=== PATIENT | female | born 1985 | race Caucasian/White ===

== ENCOUNTER 2018-04-12 19:35 | Emergency (ER) | payer OTHER ==
[2018-04-12 20:46] VITALS: BP 102/55; PULSE 72; RESP 18; TEMP 97.9
[2018-04-12] MEDS ORDERED: IBUPROFEN 400 MG TAB PO STA (20:48)
[2018-04-12] MEDS ORDERED: Acetaminophen-Codeine 300-30mg TAB PO STA (20:48)
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
--- NOTE | 2018-04-12 21:19 | XR ---
EXAMINATION TYPE: XR shoulder complete LT DATE OF EXAM: 04/12/2018 COMPARISON: EXAMINATION TYPE: XR shoulder complete LT DATE OF EXAM: 04/12/2018 COMPARISON: NONE HISTORY: Ulnar pain TECHNIQUE: 3 views FINDINGS: I see no fracture nor dislocation. Joint spaces are normal. There are no pathologic calcifi cations. IMPRESSION: Negative left shoulder exam.
[2018-04-12] MEDS ORDERED: ACET/COD 300 MG/30 MG STARTER PACK 6 TAB BTL PO STA (21:34)
== END 2018-04-12 21:51 | disposition home or self-care (01) ==
LOC: EC 19:35
DX: M25.512 Pain in left shoulder (principal); M25.312 Other instability, left shoulder; F17.200 Nicotine dependence, unspecified, uncomplicated; Z88.8 Allergy status to other drugs, medicaments and biological substances
CPT/HCPCS: 99283

== ENCOUNTER 2020-04-04 15:30 | Emergency (ER) | payer OTHER ==
[2020-04-04 15:38] VITALS: TEMP 98.4
[2020-04-04] MEDS ORDERED: METOCLOPRAMIDE 5 MG/ML 2 ML VIAL IVP STA (15:53)
[2020-04-04] MEDS ORDERED: KETOROLAC 15 MG/ML 1 ML VIAL IVP STA ×2 (15:53→17:26)
[2020-04-04] MEDS ORDERED: SODIUM CHLORIDE 0.9% 1,000 ML IV STA (15:53)
[2020-04-04] MEDS ORDERED: ORPHENADRINE 30 MG/ML 2 ML VIAL IVP STA (15:53)
[2020-04-04] MEDS ORDERED: DEXAMETHASONE SOD PHOSPHATE 10 MG/ML 1 ML VIAL IV STA (15:54)
--- NOTE | 2020-04-04 16:10 | ED ---
General Adult HPI - General Chief complaint: Headache Stated complaint: Headache Time Seen by Provider: 04/04/20 15:42 Source: patient, RN notes reviewed Mode of arrival: ambulatory Limitations: no limitations - History of Present Illness Initial comments: 34-year-old female with a past medical history of migraines presents to the emergency room for a chief complaint of headache. Patient reports she has had a headache for about 2 weeks now. Patient states the pain is consistent with previous migraine headaches. She denies this being the worst headache of her life. She reports this headache came on slowly and was not a thunderclap headache. She reports when she gets these headaches she normally goes to her neurologist office and gets an injection of pain medication however the office is closed. Patient also usually receives Botox injections every 3 months but because of covid has not had this for 6 months and feels that this is worsening her symptoms. Patient also complains of tingling in the right second digit distal phalanx. No tingling or numbness elsewhere in the right hand. This has also been ongoing for 2 weeks. Her doctor is going to be scheduling an EMG. Patient denies fevers or chills. Denies neck stiffness. Patient denies any chance of . Patient has no other complaints at this time including shortness of breath, chest pain, abdominal pain, nausea or vomiting, or visual changes. - Related Data Home Medications Medication Instructions Recorded Confirmed Aspirin/Acetaminophen/Caffeine 1 tab PO Q12HR PRN 04/04/20 04/04/20 [Excedrin Migraine Caplet] Allergies Allergy/AdvReac Type Severity Reaction Status Date / Time diphenhydramine Allergy Unknown Verified 04/04/20 17:28 [From Benadryl] Review of Systems ROS Statement: Those systems with pertinent positive or pertinent negative responses have been documented in the HPI. ROS Other: All systems not noted in ROS Statement are negative. Past Medical History Past Medical History: Seizure Disorder Additional Past Medical History / Comment(s): Headaches History of Any Multi-Drug Resistant Organisms: None Reported Past Surgical History: Back Surgery, Orthopedic Surgery Past Psychological History: Anxiety Smoking Status: Never smoker Past Alcohol Use History: None Reported Past Drug Use History: None Reported General Exam Limitations: no limitations General appearance: alert, in no apparent distress Head exam: Present: atraumatic Eye exam: Present: normal appearance, PERRL, EOMI. Absent: scleral icterus, conjunctival injection, periorbital swelling ENT exam: Present: normal exam, mucous membranes moist Neck exam: Present: normal inspection, full ROM. Absent: tenderness, meningismus, lymphadenopathy Respiratory exam: Present: normal lung sounds bilaterally. Absent: respiratory distress, wheezes, rales, rhonchi, stridor Cardiovascular Exam: Present: regular rate, normal rhythm, normal heart sounds. Absent: systolic murmur, diastolic murmur, rubs, gallop, clicks GI/Abdominal exam: Present: soft, normal bowel sounds. Absent: distended, tenderness, guarding, rebound, rigid Extremities exam: Present: other (Sensation intact right upper extremity. She does have some diminished sensation confined to the finger pad of the left second digit distal phalanx) Neurological exam: Present: alert, oriented X3, normal gait Expanded Patient oriented to: Present: person, place, time Speech: Present: fluid speech Sensory exam: Upper Extremity Light Touch: Normal, Upper Extremity Pin Prick: Normal, Lower Extremity Light Touch: Normal, Lower Extremity Pin Prick: Normal Motor strength exam: RUE: 5, LUE: 5, RLE: 5, LLE: 5 Course Vital Signs 04/04/20 04/04/20 15:32 16:37 Temperature 98.4 F Pulse Rate 70 Respiratory 16 20 Rate Blood Pressure 109/62 O2 Sat by Pulse 100 Oximetry EKG Findings - EKG Comments: EKG Findings:: Sinus bradycardia, ventricular rate 51, VA interval 140, QTC 431 Medical Decision Making - Medical Decision Making Physical exam unremarkable. No focal neurologic deficits. CT brain shows no acute abnormalities. Patient was given migraine cocktail had significant improvement in symptoms. At this time she'll be discharged home to follow up with her neurologist. She will return here for any worsening symptoms. I discussed this case with attending Dr. Huerta who agrees with this assessment and treatment plan. Disposition Clinical Impression: Headache Disposition: HOME SELF-CARE Condition: Good Instructions (If sedation given, give patient instructions): Acute Headache (ED) Additional Instructions: Please follow-up with your doctor in one to 2 days. If you have any worsening symptoms return to the emergency room. Is patient prescribed a controlled substance at d/c from ED?: No Referrals: Gonzalez Bhatia MD [Primary Care Provider] - 1-2 days Time of Disposition: 17:55
--- NOTE | 2020-04-04 17:18 | CT ---
EXAMINATION TYPE: CT brain wo con DATE OF EXAM: 04/04/2020 COMPARISON: Headache. Pain. HISTORY: migraine CT DLP: 1058.4 mGycm Automated exposure control for dose reduction was used. Ventricles have normal size. There is no mass effect nor midline shift. There is no sign of intracran ial hemorrhage. Calvarium is intact. There is no evidence of cerebral edema. IMPRESSION: Negative unenhanced head CT scan.
[2020-04-04 18:09] VITALS: BP 96/62; PULSE 56; RESP 16
== END 2020-04-04 18:09 | disposition home or self-care (01) ==
LOC: EC 15:30
DX: R51.9 Headache, unspecified (principal); Z88.8 Allergy status to other drugs, medicaments and biological substances
CPT/HCPCS: 93005; 70450; 99284; 96374; 96375 ×3; 96361; J1100; J2360; J2765; J1885